=== PATIENT | female | born 1955 | race Caucasian/White ===

== ENCOUNTER 2016-11-28 14:13 | Inpatient (IN) | payer MEDICARE ==
[~2016-11-28] VITALS: Ht 170.2 cm; Wt 78.0 kg
[~2016-11-28 14:13] MED LIST: AMITIZA24 MCG PO; HYDROCODONE-APA1 TAB PO; KLONOPIN1 MG PO; LANTUS INSULIN10 ML SC; PHENERGAN25 M1 PO; PRILOSEC20 MG PO; PRINIVIL20 MG PO; SEROQUEL200 MG PO; VALIUM10 MG PO; ZANAFLEX4 MG PO
--- NOTE | 2016-11-28 14:40 | NUR ---
RECEIVED TO ROOM 2224 FROM [facility]. ORIENTED TO ROOM AND CALL LIGHT SYSTEM. FAMILY IN ROOM. CALL LIGHT IN REACH. WILL CONTINUE WITH PLAN OF CARE.
[2016-11-28 14:44] VITALS: BP 164/91
--- NOTE | 2016-11-28 14:59 | NUR ---
IV SITED TO LEFT FOREARM WITH 20 GA X1 STICK. NS INITIATED @ 75 CC/HR VIA PUMP. SCDs APPLIED TO BLE. HISTORY AND MED REC REVIEWED.
[2016-11-28] MEDS ORDERED: NORVASC10 MG PO (15:03)
[2016-11-28] MEDS ORDERED: ZESTRIL20 MG PO (15:04)
[2016-11-28] MEDS ORDERED: SEROQUEL300 MG PO (15:05)
[2016-11-28] MEDS ORDERED: CARAFATE1 G/10 ML PO (15:06)
[2016-11-28] MEDS ORDERED: OMEPRAZOLE20 M1 PO (15:06)
[2016-11-28] MEDS ORDERED: LANTUS INSULIN10 ML SC (15:08)
--- NOTE | 2016-11-28 15:46 | NUR ---
Patient Name: JOSE GONSALEZ Admission Status: Urgent Accout number: [id number] Admission Date: 11-28-2016 : 1955 Admission Diagnosis: Attending: MERCEDES Current LOS: 1 Anticipated DC Date: 12-02-2016 Planned Disposition: Home Primary Insurance: MEDICARE A & B Discharge Planning Comments: CM MET WITH PATIENT AND DAUGHTER IN LAW (CARROL) REGARDING D/C NEEDS AND PLANS. PATIENT STATED SHE LIVES ALONE AND CARROL WILL DRIVE HER HOME AT DISCHARGE. PATIENT STATED SHE HAS 4 STEPS W/RAILS TO ENTER HOME AND NO STAIRS INSIDE. PATIENT IS INDEPENDENT WITH HER CARE AND HAS A GLUCOMETER AT HOME. (DOES NOT CHECK SUGARS). PATIENTS PCP IS DR. CHRISTIANSON AND USES [facility]. PATIENT DOES NOT WANT HOME HEALTH. CM WILL CONTINUE TO FOLLOW PATIENT WITH D/C NEEDS AND PLANS. PCP DR. CHRISTIANSON [facility] - [phone] CARORL HERNANDEZ (DAUGHTER IN LAW) [phone] Soap Slabber: Jacqueline Gomez Is the patient Alert and Oriented? Yes 0 * How many steps to enter\exit or inside your home? 4 W/RAILS 0 * PCP DR. CHRISTIANSON 0 * Pharmacy [facility] 0 * Preadmission Environment Home with Family 0 * ADLs Independent 0 * Equipment Glucometer 0 * List name and contact numbers for known caregivers / representatives who currently or will assist patient after discharge: CARROL HERNANDEZ (DAUGHTER IN LAW) [phone] 0 * Community resources currently utilized None 0 * Additional services required to return to the preadmission environment? Yes 0 * Can the patient safely return to the preadmission environment? Yes 0 * Has this patient been hospitalized within the prior 30 days at any hospital? No 0 Grand Total: 0
[2016-11-28 16:25] LABS: BASOPHILS 0.3 % (0-2); HEMATOCRIT 42.7 % (36.0-48.0); HEMOGLOBIN 14.8 g/dL (12-16); IMMATURE GRANULOCYTES 0.1 % (0-5); LYMPHOCYTES 19.3 % (15-50); MCH 29.5 pg (26.0-34.0); MCHC 34.7 g/dL (31.0-37.0); MCV 85.2 fL (80.0-100.0); MEAN PLATELET VOLUME 10.7 fL (7.4-10.4); NEUTROPHILS 72.3 % (40-80); PLATELET COUNT 268 10x3/uL (130-400); RBC 5.01 10x6/uL (4.00-5.40); RDW 12.7 % (11.5-14.5); WBC 9.8 10x3/uL (4.8-10.8)
[2016-11-28 16:26] VITALS: BP 164/91; BMI 27.0
[2016-11-28 16:40] LABS: ALBUMIN 3.7 g/dL (3.4-5.0); BILIRUBIN - TOTAL 0.71 mg/dL (0.2-1.3); CALCIUM 8.4 mg/dL (8.5-10.1); CARBON DIOXIDE 23.2 mmol/L (21.0-32.0); POTASSIUM - SERUM 3.2 mmol/L (3.5-5.1); PROTEIN - SERUM 7.6 g/dL (6.4-8.2)
--- NOTE | 2016-11-28 16:47 | NUR ---
PROTONIX AND ATIVAN IVP. FSBS 290 SO 8 UNITS HUMALOG SUBQ TO RLQ.
--- NOTE | 2016-11-28 17:00 | NUR ---
14 FR NGT INSERTED TO LEFT TECHIQUE. PLACEMENT CHECKED. 50 CC LIGHT BLUE LIQUID OBTAINED.
--- NOTE | 2016-11-28 18:05 | NUR ---
STOOL COLLECTED AND SENT TO LAB FOR TESTING. NO OTHER CHANGES IN INITIAL ASSESSMENT. SCDs TO BLE. FAMILY IN ROOM. CALL LIGHT IN REACH. WILL CONTINUE WITH PLAN OF CARE.
[2016-11-28 20:00] VITALS: BP 156/99
--- NOTE | 2016-11-28 20:36 | NUR ---
URINE COLLECTED AND SENT TO LAB. RESULTS FROM STOOL SPECIMEN CALLED TO JONAH COOPER WITH ORDERS RECIEVED. PATIENT PLACED IN ISOLATION FOR POSITIVE STOOL SPECIMEN.
--- NOTE | 2016-11-28 21:41 | NUR ---
AWAKE,ALERT. NG TO LEFT NARE PATENT AND DRAINING. IV INFUSING TO LEFT FOREARM WITHOUT REDNESS OR EDEMA NOTED. CL IN REACH.
[2016-11-29] VITALS: BP 138/78
--- NOTE | 2016-11-29 00:28 | NUR ---
RESTING QUIETLY. NO DISTRESS NOTED.
--- NOTE | 2016-11-29 00:53 | NUR ---
PT ALERT & ORIENTED. C/O OF NAUSEA. NURSE GIVING NAUSEA MED NOW. NO OTHER NEEDS. CONTINUE ELECTRONIC SCALE ASSEMBLER AND TESTER'S PLAN OF CARE.
[2016-11-29 03:48] LABS: APPEARANCE CLOUDY (CLEAR); BILIRUBIN NEGATIVE (NEGATIVE); COLOR YELLOW (YELLOW); GLUCOSE 1000 mg/dL (NEGATIVE); KETONE NEGATIVE (NEGATIVE); LEUKOCYTE ESTERASE TRACE (NEGATIVE); NITRITE NEGATIVE (NEGATIVE); PROTEIN NEGATIVE (NEGATIVE); UROBILINOGEN NORMAL (NORMAL)
[2016-11-29 03:59] LABS: BACTERIA MANY /hpf (NONE SEEN); EPITHELIAL CELLS 0-5 /hpf (0-5); GRANULAR CAST RARE /lpf (NONE SEEN); HYALINE CAST RARE /lpf (NONE SEEN); RED CELLS - URINE RARE /hpf (0-5); WHITE CELLS - URINE 25-50 /hpf (0-5)
[2016-11-29 04:00] VITALS: BP 156/93
[2016-11-29 05:57] LABS: BASOPHILS 0.3 % (0-2); EOSINOPHILS 3.2 % (0-7); HEMATOCRIT 40.9 % (36.0-48.0); HEMOGLOBIN 13.9 g/dL (12-16); IMMATURE GRANULOCYTES 0.1 % (0-5); LYMPHOCYTES 33.8 % (15-50); MCH 29.1 pg (26.0-34.0); MCV 85.6 fL (80.0-100.0); MEAN PLATELET VOLUME 10.2 fL (7.4-10.4); MONOCYTES 7.8 % (2-11); NEUTROPHILS 54.8 % (40-80); PLATELET COUNT 272 10x3/uL (130-400); RBC 4.78 10x6/uL (4.00-5.40); RDW 12.7 % (11.5-14.5)
--- NOTE | 2016-11-29 06:16 | NUR ---
NO CHANGE IN ASSESSMENT. CL IN REACH.
[2016-11-29 06:18] LABS: WBC 7.2 10x3/uL (4.8-10.8)
--- NOTE | 2016-11-29 06:54 | NUR ---
REPORT RECEIVED FROM EQUIPMENT TECHNICIAN NURSE. CALL LIGHT IN REACH.
[2016-11-29 06:55] LABS: ALBUMIN 3.2 g/dL (3.4-5.0); ANION GAP 12.3 mmol/L (8-16); BILIRUBIN - TOTAL 0.5 mg/dL (0.2-1.3); CALCIUM 7.7 mg/dL (8.5-10.1); CARBON DIOXIDE 25.9 mmol/L (21.0-32.0); CREATININE - SERUM 0.9 mg/dL (0.6-1.3); POTASSIUM - SERUM 3.2 mmol/L (3.5-5.1); PROTEIN - SERUM 6.7 g/dL (6.4-8.2)
--- NOTE | 2016-11-29 07:52 | NUR ---
VERY ANXIOUS IN ROOM. STATES "I AM GOING TO . I AM NOT GOING TO MAKE IT." ASSURED PATIENT THAT SHE IS NOT GOING TO . SHE STARTED REQUESTING PAIN, NAUSEA, AND ANXIETY. OFFERED MORPHINE BUT STATES SHE WANTS DILAUDID INSTEAD TO "KNOCK HER OUT". OFFERED ZOFRAN AND ATIVAN BUT STATES PHENERGAN AND VALIUM INSTEAD. EXPLAINED TO PATIENT THAT IS ALL SHE HAS ORDERED NOW AND I WOULD SPEAK TO THE DOCTOR WHEN SHE GETS HERE. WILL GO AHEAD AND GIVEN MEDS NOW.
[2016-11-29 08:09] VITALS: BP 174/77
--- NOTE | 2016-11-29 08:27 | NUR ---
RESTING WITH EYES CLOSED. RESP EVEN AND UNLABORED. CALL LIGHT IN REACH.
--- NOTE | 2016-11-29 09:55 | NUR ---
PROTONIX IVP. RESTING WITH EYES CLOSED. RESP EVEN AND UNLABORED. CALL LIGHT IN REACH.
--- NOTE | 2016-11-29 10:55 | NUR ---
PATIENT SITTING UP ON SIDE OF BED ALERT. NO SIGNS OF DISTRESS NOTED. BED IN LOW POSITION. CALL LIGHT IN REACH.
[2016-11-29 12:38] VITALS: BP 180/94
--- NOTE | 2016-11-29 12:55 | NUR ---
NGT PULLED UP 10 CM.
--- NOTE | 2016-11-29 13:07 | NUR ---
4 UNITS SUBQ TO RIGHT ARM FOR BLOOD SUGAR OF 238.
[2016-11-29 13:16] VITALS: Ht 170.2 cm; Wt 78.0 kg
--- NOTE | 2016-11-29 15:20 | NUR ---
FLAGYL 500 MG IVP AND REGLAN 5 SIVP. CALL LIGHT IN REACH.
[2016-11-29 15:32] VITALS: BP 176/85
--- NOTE | 2016-11-29 17:39 | NUR ---
FSBS 202 SO 4 UNITS SUBQ. CALL LIGHT IN REACH.
--- NOTE | 2016-11-29 18:01 | NUR ---
FSBS 202 SO 4 UNITS SUBQ. CALL LIGHT IN REACH.
--- NOTE | 2016-11-29 18:09 | NUR ---
NO CHANGES IN INITITAL ASSESSMENT. CALL LIGHT IN REACH. SCDs ON. WILL CONTINUE WITH PLAN OF CARE.
[2016-11-30] VITALS: BP 154/82
[2016-11-30 04:00] VITALS: BP 127/74
[2016-11-30 07:05] LABS: BASOPHILS 0.2 % (0-2); EOSINOPHILS 0.8 % (0-7); HEMOGLOBIN 13.7 g/dL (12-16); IMMATURE GRANULOCYTES 0.2 % (0-5); LYMPHOCYTES 20.8 % (15-50); MCH 29.5 pg (26.0-34.0); MCHC 34.3 g/dL (31.0-37.0); MEAN PLATELET VOLUME 10.4 fL (7.4-10.4); MONOCYTES 10.4 % (2-11); NEUTROPHILS 67.6 % (40-80); PLATELET COUNT 292 10x3/uL (130-400); RBC 4.65 10x6/uL (4.00-5.40)
[2016-11-30 07:19] LABS: ALBUMIN 3.2 g/dL (3.4-5.0); ALKALINE PHOSPHATASE 125 U/L (46-116); ALT (SGPT) 63 U/L (10-68); CALC OSMOLALITY 289 mosm/kg (275-300); CARBON DIOXIDE 26.8 mmol/L (21.0-32.0); CHLORIDE - SERUM 105 mmol/L (98-107); CREATININE - SERUM 0.8 mg/dL (0.6-1.3); POTASSIUM - SERUM 3.1 mmol/L (3.5-5.1); PROTEIN - SERUM 6.8 g/dL (6.4-8.2); SODIUM 141 mmol/L (136-145); UREA NITROGEN 11 mg/dL (7-18); eGFR NON AFRICAN AMERICAN 77 mL/min (90-120)
[2016-11-30 07:20] LABS: GLUCOSE 274 mg/dL (74-106)
--- NOTE | 2016-11-30 07:45 | CN ---
PATIENT NAME:JOSE GONSALEZ MEDICAL RECORD: [id number] : 55 LOCATION:D.MS [id number] ADMIT DATE: 11/28/16 ACCOUNT: [id number] CONSULTING PHYSICIAN: SHIRA FOSTER MD REFERRING PHYSICIAN: ALKA HERNANDEZ MD DATE OF CONSULTATION: 11/29/2016 Surgical Consultation SURGEON: Shira Foster MD. CHIEF COMPLAINT: Nausea and vomiting. HISTORY OF PRESENT ILLNESS: This is a 61-year-old female who was admitted to the hospital yesterday. At her primary care physician's office, abdominal films revealed possible small bowel obstruction. She was sent to the hospital. Prior to her visit to PCP, she had had acute onset of diffuse abdominal pain associated with nausea, vomiting and diarrhea. The patient states the pain was diffuse across her abdomen. It was constant in nature, it was sharp and stabbing, it fluctuated in intensity, it was nonradiating. Currently, she is admitted to the hospital. CT scan was obtained, which shows some air-fluid levels in the colon, no evidence of small bowel obstruction. Currently, her pain is 6/10. Her main complaint is just persistence in the nausea. She has continued to have liquid diarrhea. Denies any episodes of hematemesis, hematochezia or melena. Denies any dysuria or hematuria. Denies having fever or chills at home. PAST MEDICAL HISTORY: Vertigo, diabetes, basal cell carcinoma of the face, acid reflux, gastric ulcers, depression. PAST SURGICAL HISTORY: Cholecystectomy, appendectomy, hysterectomy, cystoscopy laparotomy. ALLERGIES: No known drug allergies. MEDICATIONS: Please see electronic medical record for full list of medications. FAMILY HISTORY: Denies any history of cancer or diabetes in her parents. SOCIAL HISTORY: Denies tobacco abuse. Denies alcohol use. REVIEW OF SYSTEMS: A 12-point review of systems was obtained. Pertinent positives and negatives as per the HPI. PHYSICAL EXAMINATION: VITAL SIGNS: Temperature 97.9, pulse 74, respirations 18, blood pressure 180/94, satting 94% on room air. GENERAL: This is a well-developed, well-nourished female in moderate distress. PSYCHIATRIC: She is alert and oriented times 3. EYES: Extraocular muscles intact. EAR, NOSE AND THROAT: Mucous membranes are dry. NECK: Supple. CARDIOVASCULAR: Normal sinus rhythm. LUNGS: Clear to auscultation bilaterally. ABDOMEN: Firm, it is moderately distended, it is tympanitic. There is no CONSULT REPORT [id number] JOSE GONSALEZ guarding. No rebound, no peritoneal signs. No palpable hernia defects. SKIN: Warm and dry with normal turgor. EXTREMITIES: A 2+ pulses. No peripheral edema. NEUROLOGIC: She has a GCS of 15 with no focal deficits. LABORATORY DATA: Reviewed. Please see electronic medical record list for full lab results including CBC, chemistry, urinalysis and serology. The patient is negative for C. diff toxin, but positive for C. diff antigen. CT of the abdomen and pelvis images personally reviewed. No acute findings on CT of the abdomen and pelvis. IMPRESSION: This is a 61-year-old female with nausea, vomiting and diarrhea, positive Clostridium difficile, diarrhea and abdominal pain, possible gastroenteritis. PLAN: Continue IV fluid resuscitation, pull NG tube back 10 cm, continue NG tube to low intermittent wall suction, continue IV antibiotics for C. diff, serial abdominal exams, monitor labs and electrolytes for diarrhea. Follow up stool studies. TRANSINT:[id number] Voice Confirmation ID: [id number] DOCUMENT ID: [id number] SHIRA FOSTER MD at 0745 CC: [id number] DICTATION DATE: 11/29/16 1432 CEMENT MIXER: 11/30/16 0001 ADM IN [facility] [address] [place] [address]
--- NOTE | 2016-11-30 08:32 | NUR ---
SCHEDULED MEDICATIONS ADMINISTERED AT THIS TIME. NG TUBE CLAMPED PER ORDER. ASSESSMENT PERFORMED PER FLOWSHEET. PT DENIES NAUSEA OR VOMITING. CALL LIGHT IN REACH, PT IS SELF AMBULATORY. WILL CONTINUE WITH PLAN OF CARE.
[2016-11-30 09:01] VITALS: BP 171/104
--- NOTE | 2016-11-30 10:12 | NUR ---
SCHEDULED BLOOD PRESSURE MEDICATION ADMINISTERED AT THIS TIME. DENIES NAUSEA OR VOMITING. NG TUBE REMAINS CLAMPED AND PT TOLERATING WATER, JELLO AND POPSICLES. CALL LIGHT IN REACH, WILL CONTINUE WITH PLAN OF CARE.
--- NOTE | 2016-11-30 11:50 | NUR ---
BLOOD SUGAR 257. ADMINISTERED 6 UNITS TO LEFT ARM PER SLIDING SCALE. DENIES NAUSEA. NG TUBE REMAINS CLAMPED. CALL LIGHT IN REACH, WILL CONTINUE WITH PLAN OF CARE.
--- NOTE | 2016-11-30 12:55 | NUR ---
REPORTS THAT IV TO LEFT FOREARM IS TENDER AT THIS TIME. IV FLUIDS TURNED OFF AT THIS TIME. GABE MCKEON TO RE-SITE IV. CALL LIGHT IN REACH, WILL CONTINUE WITH PLAN OF CARE.
[2016-11-30 13:02] VITALS: BP 134/82
--- NOTE | 2016-11-30 13:50 | NUR ---
22G IV SITED TO PT'S LEFT AC X3 ATTEMPTS PER GABE MCKEON. PT TOLERATED WITHOUT COMPLAINTS, IV FLUIDS RE-STARTED. WILL CONTINUE WITH PLAN OF CARE.
--- NOTE | 2016-11-30 15:25 | NUR ---
NG TUBE REMAINS CLAMPED. PT WITHOUT NAUSEA OR EMESIS. SLEEPING AT THIS TIME WITH RESPIRATIONS EVEN AND NON LABORED. IV TO LEFT AC PATENT. CALL LIGHT IN REACH, WILL CONTINUE WITH PLAN OF CARE.
[2016-11-30 17:12] VITALS: BP 161/95
--- NOTE | 2016-11-30 17:15 | NUR ---
PT COMPLAINING OF NAUSEA WITHOUT EMESIS. PRN ZOFRAN ADMINISTERED PER ORDER. NG TUBE REMAINS CLAMPED AND EXPLAINED TO PT THAT TUBE COULD BE RE-CONNECTED TO SUCTION IF THE ZOFRAN DID NOT PROVIDE THE PT SOME RELIEF. PT VERBALIZED UNDERSTANDING. CALL LIGHT IN REACH, WILL CONTINUE WITH PLAN OF CARE.
--- NOTE | 2016-11-30 18:50 | NUR ---
PT STATES THAT NAUSEA IS BETTER SO NG TUBE CLAMPED AGAIN AT THIS TIME.
[2016-11-30 20:00] VITALS: BP 131/65
[2016-12-01] VITALS: BP 148/78
--- NOTE | 2016-12-01 03:16 | NUR ---
PT HAS BEEN ON HER CALL LIGHT FREQUENTLY DURING THE NIGHT. SHE IS GETTING UP TO THE BATHROOM TO VOID AND ONE TIME UNHOOKED HER NG TUBE CONNECTION AND HAD TO HAVE A COMPLETE LINEN CHANGE AND FLOOR CLEANING. SHE IS RESTING QUIET AT THIS TIME WITH EASY RESPIRTIONS AND NO DISTRESS. THE NG TUBE IS WORKING IT SHOULD. THE BED IS LOW, RAILS UP X'S 2 WITH THE CALL LIGHT AT HAND.
[2016-12-01 04:00] VITALS: BP 123/61
[2016-12-01 06:35] LABS: BASOPHILS 0.5 % (0-2); EOSINOPHILS 1.1 % (0-7); HEMATOCRIT 38.5 % (36.0-48.0); IMMATURE GRANULOCYTES 0.3 % (0-5); LYMPHOCYTES 33.5 % (15-50); MCH 29.3 pg (26.0-34.0); MCHC 33.8 g/dL (31.0-37.0); MCV 86.7 fL (80.0-100.0); MEAN PLATELET VOLUME 10.5 fL (7.4-10.4); MONOCYTES 6.9 % (2-11); NEUTROPHILS 57.7 % (40-80); PLATELET COUNT 254 10x3/uL (130-400); RBC 4.44 10x6/uL (4.00-5.40)
[2016-12-01 06:36] LABS: WBC 6.4 10x3/uL (4.8-10.8)
[2016-12-01 06:55] LABS: ALBUMIN 2.9 g/dL (3.4-5.0); ALKALINE PHOSPHATASE 111 U/L (46-116); CALC OSMOLALITY 287 mosm/kg (275-300); CALCIUM 7.9 mg/dL (8.5-10.1); CARBON DIOXIDE 25.3 mmol/L (21.0-32.0); CHLORIDE - SERUM 107 mmol/L (98-107); CREATININE - SERUM 0.7 mg/dL (0.6-1.3); GLUCOSE 216 mg/dL (74-106); POTASSIUM - SERUM 3.5 mmol/L (3.5-5.1); PROTEIN - SERUM 6.2 g/dL (6.4-8.2); SODIUM 142 mmol/L (136-145); UREA NITROGEN 7 mg/dL (7-18); eGFR NON AFRICAN AMERICAN 90 mL/min (90-120)
[2016-12-01 06:56] LABS: ALT (SGPT) 46 U/L (10-68)
--- NOTE | 2016-12-01 07:30 | NUR ---
ASSESSMENT PER FLOW SHEET.PT WITHOUT DISTRESS.ISOLATION MAINTAINED.CALL LIGHT IN REACH
[2016-12-01 07:50] VITALS: BP 146/85
--- NOTE | 2016-12-01 12:30 | NUR ---
TOLERATING REG DIET ORDERED.REMAINS WITHOUT NAUSEA AND VOMITING.
[2016-12-01 12:32] VITALS: BP 172/74
--- NOTE | 2016-12-01 14:28 | NUR ---
PT REFUSES LEVAQUIN IV.STATES SHE IS NOT ALLERGIC BUT DOESNT WANT IT.
[2016-12-01 15:48] VITALS: BP 155/81
--- NOTE | 2016-12-01 17:23 | NUR ---
PAIN MEDS ORDERED FOR HEADACHE.STATES SHE THINKS SHE HAS SINUS ISSUES.ICE PACK PER PT REQUEST.C/O SOME NAUSEA,BUT STATES SHE ATE TOO MUCH FOOD TO SOON.ZOFRAN ORDERED PER AUG.DENIES FURTHER NEEDS.CONT PLAN OF CARE
--- NOTE | 2016-12-01 19:20 | NUR ---
RECIEVED SHIFT REPORT. PT IS LYING IN BED. ALERT AND ORIENTED AND ABLE TO VERBALIZE NEEDS. IV IS PATENT AND SALINE LOC AT THIS TIME. PT IS AMBULATORY BUT WAS INSTRUCTED TO CALL FOR ANY ASSISTANCE NEEDED. SCD'S OFF AT THIS TIME. PT STATES PAIN IS 8/10. ISOLATION PRECAUTIONS ARE IN PLACE. NO NEEDS ARE VERBALIZED AT THIS TIME. WILL CONTINUE TO MONITOR. SIDE RAILS ARE UP X 2. BED IS IN LOWEST POSITION. CALL LIGHT IS WITHIN REACH.
[2016-12-01 20:00] VITALS: BP 111/78
--- NOTE | 2016-12-01 22:19 | NUR ---
SHIFT ASSESSMENT COMPLETED. NIGHT MEDS GIVEN WITH NO PROBLEMS. PT RECIEVED 8 UNITS INSULIN PER SLIDING SCALE FOR VJDO=[id number]. PT C/O PAIN 01/30. ADMINISTERED PRESCRIBED PRN NORCO PER ORDER. DENIES FURTHER NEEDS. WILL MONITOR. SIDE RAILS X 2. BED LOW. CALL LIGHT IN REACH.
[2016-12-02] VITALS: BP 110/80
[2016-12-02 04:00] VITALS: BP 126/66
[2016-12-02 06:25] LABS: HEMATOCRIT 34.8 % (36.0-48.0); HEMOGLOBIN 11.7 g/dL (12-16); MCH 29.2 pg (26.0-34.0); MCHC 33.6 g/dL (31.0-37.0); MCV 86.8 fL (80.0-100.0); MEAN PLATELET VOLUME 10.4 fL (7.4-10.4); PLATELET COUNT 251 10x3/uL (130-400); RBC 4.01 10x6/uL (4.00-5.40); WBC 5.8 10x3/uL (4.8-10.8)
[2016-12-02 06:47] LABS: ALBUMIN 2.5 g/dL (3.4-5.0); ALKALINE PHOSPHATASE 107 U/L (46-116); ALT (SGPT) 44 U/L (10-68); CALC OSMOLALITY 295 mosm/kg (275-300); CALCIUM 7.9 mg/dL (8.5-10.1); CARBON DIOXIDE 28.3 mmol/L (21.0-32.0); CHLORIDE - SERUM 111 mmol/L (98-107); CREATININE - SERUM 0.7 mg/dL (0.6-1.3); GLUCOSE 259 mg/dL (74-106); POTASSIUM - SERUM 3.1 mmol/L (3.5-5.1); PROTEIN - SERUM 5.3 g/dL (6.4-8.2); SODIUM 145 mmol/L (136-145); UREA NITROGEN 6 mg/dL (7-18); eGFR NON AFRICAN AMERICAN 90 mL/min (90-120)
[2016-12-02 07:11] LABS: BASOPHILS 1 % (0-2); LYMPHOCYTES 57 % (15-50); MONOCYTES 1 % (2-11); NEUTROPHILS 40 % (40-80); PLATELET ESTIMATE NORMAL
--- NOTE | 2016-12-02 08:00 | NUR ---
ASSESSMENT PER FLOW SHEET.PT WITHOUT DISTRESS.CALL LIGHT IN REACH.ISOLATION MAINTAINED.
[2016-12-02 08:33] VITALS: BP 122/71
--- NOTE | 2016-12-02 12:44 | NUR ---
NUTRITION MONITORING & EVAL CHART REVIEWED, PT VISIT. REMAINS IN ISOLATION. TOLERATING LUNCH. RD FOLLOWING
[2016-12-02] MEDS ORDERED: FLORAJEN3 CAPS460 MG PO (13:18)
[2016-12-02] MEDS ORDERED: PEPCID20 MG PO (13:18)
[2016-12-02] MEDS ORDERED: LEVAQUIN750 MG PO (13:22)
[2016-12-02] MEDS ORDERED: FLAGYL500 MG PO (13:22)
--- NOTE | 2016-12-02 15:12 | NUR ---
CM REASSESSEMENT NOTE: PATIENT IS DISCHARGING TODAY/IMM SIGNED/ DAUGHTER IN LAW WILL BE DRIVING HER HOME/ DENIED ANY NEEDS FOR DISCHARGE AND DENIED HOME HEALTH.
--- NOTE | 2016-12-02 15:26 | NUR ---
DISCHARGE INSTRUCTIONS,STATES UNDERSTANDING.IV DCD WITH CATH INTACT.PT STATES SHE WILL NOT TAKE LEVAQUIN PERIOD. CALL TO HERRERA
--- NOTE | 2016-12-02 15:28 | NUR ---
CALL BACK FROM [facility].NO OTHER ABX SENSITIVE TO ALL 3 BACTERIA.PT TO CONT WITH 3 DAYS OF LEVAQUIN
--- NOTE | 2016-12-02 15:34 | NUR ---
PT INFORMED ABOUT LEVAQUIN ABX.SHE STILL REFUSES TO GET MEDICATION FROM PHARMACY.SHE IS VERY UPSET BECAUSE SHE IS GOING HOME WITHOUT PAIN MEDICATIONS.SHE REFUSES TO RIDE IN WHEELCHAIR AND LEFT AMBULATORY FOR TRANSPORT HOME.
[2016-12-04 03:08] LABS: OVA + PARASITE EXAM Final report (())
== END 2016-12-02 15:37 | disposition home or self-care (01) | DRG 372 ==
LOC: D.MS 14:13
PROVIDERS: Family Medicine; Family Medicine Adult Medicine; ADMIT Family Medicine
PROC: 0D9670Z Drainage of Stomach with Drainage Device, Via Natural or Artificial Opening (ICD-10-PCS; principal; 2016-11-28)
DX: A04.7 Enterocolitis due to Clostridium difficile (principal); K56.60 Unspecified intestinal obstruction; I10 Essential (primary) hypertension; K21.9 Gastro-esophageal reflux disease without esophagitis; E11.65 Type 2 diabetes mellitus with hyperglycemia; Z79.4 Long term (current) use of insulin; F41.8 Other specified anxiety disorders

== ENCOUNTER → 2017-02-20 08:46 | Outpatient (CLI) | payer MEDICARE ==
[2016-11-29 13:16] VITALS: BMI 26.9
[~2017-02-20 08:46] MED LIST changes: +CARAFATE1 G/10 ML PO; +FLAGYL500 MG PO; +FLORAJEN3 CAPS460 MG PO; +LEVAQUIN750 MG PO; +NORVASC10 MG PO; +OMEPRAZOLE20 M1 PO; +PEPCID20 MG PO; +SEROQUEL300 MG PO; +ZESTRIL20 MG PO
[2017-02-20 10:03] LABS: ALBUMIN 3.7 g/dL (3.4-5.0); BILIRUBIN - DIRECT 0.1 mg/dL (0.00-0.30); BILIRUBIN - INDIRECT 0.31 mg/dL (0.00-1.00); BILIRUBIN - TOTAL 0.41 mg/dL (0.2-1.3); PROTEIN - SERUM 7.6 g/dL (6.4-8.2)
== END | disposition home or self-care (01) ==
LOC: D.US 08:46
PROVIDERS: Internal Medicine Gastroenterology
DX: K76.0 Fatty (change of) liver, not elsewhere classified (principal)

== ENCOUNTER → 2017-03-07 12:38 | Outpatient (CLI) | payer MEDICARE ==
[2016-11-29 13:16] VITALS: BMI 26.9
[2017-03-08 09:12] LABS: HEPATITIS C ANTIBODY <0.1 (0.0-0.9)
== END | disposition home or self-care (01) ==
LOC: D.LAB 02-28 08:15
PROVIDERS: Internal Medicine Gastroenterology
DX: R74.8 Abnormal levels of other serum enzymes (principal); R16.0 Hepatomegaly, not elsewhere classified

== ENCOUNTER → 2017-06-05 09:23 | Outpatient (CLI) | payer MEDICARE ==
[2016-11-29 13:16] VITALS: BMI 26.9
[2017-06-05 09:59] LABS: BASOPHILS 0.5 % (0-2); EOSINOPHILS 2.8 % (0-7); HEMATOCRIT 42.1 % (36.0-48.0); HEMOGLOBIN 14.3 g/dL (12-16); LYMPHOCYTES 49.4 % (15-50); MCH 29.4 pg (26.0-34.0); MCV 86.6 fL (80.0-100.0); MEAN PLATELET VOLUME 10.4 fL (7.4-10.4); MONOCYTES 5.8 % (2-11); NEUTROPHILS 41.5 % (40-80); PLATELET COUNT 294 10x3/uL (130-400); RBC 4.86 10x6/uL (4.00-5.40); RDW 12.6 % (11.5-14.5); WBC 5.7 10x3/uL (4.8-10.8)
[2017-06-05 10:16] LABS: % SATURATION 21 % (15-55); APTT 26.5 SECONDS (22.8-39.4); INR 0.96 (0.85-1.17); IRON 84 ug/dl (35-150); PROTIME 12.4 SECONDS (11.6-15.0); TOTAL IRON BIND CAPACITY 397 ug/dl (260-445); UNSAT IRON BIND CAPACITY 313 ug/dl (150-375)
[2017-06-05 10:29] LABS: ALBUMIN 3.6 g/dL (3.4-5.0); ALKALINE PHOSPHATASE 136 U/L (46-116); ALT (SGPT) 47 U/L (10-68); BILIRUBIN - DIRECT 0.08 mg/dL (0.00-0.30); BILIRUBIN - INDIRECT 0.29 mg/dL (0.00-1.00); BILIRUBIN - TOTAL 0.37 mg/dL (0.2-1.3); CALC OSMOLALITY 283 mosm/kg (275-300); CALCIUM 8.7 mg/dL (8.5-10.1); CARBON DIOXIDE 25.9 mmol/L (21.0-32.0); CHLORIDE - SERUM 101 mmol/L (98-107); CHOL - HDL RATIO 8.7 ratio (2.3-4.1); CHOLESTEROL, TOTAL 270 mg/dL (0-200); CREATININE - SERUM 1.1 mg/dL (0.6-1.3); FERRITIN 104 ng/mL (3-244); GAMMA GT 36 U/L (5-85); GLUCOSE 270 mg/dL (74-106); HDL CHOLESTEROL 31 mg/dL (32-96); PROTEIN - SERUM 7.3 g/dL (6.4-8.2); SODIUM 136 mmol/L (136-145); TRIGLYCERIDE 428 mg/dL (30-200); UREA NITROGEN 18 mg/dL (7-18); eGFR NON AFRICAN AMERICAN 53 mL/min (90-120)
[2017-06-06 09:16] LABS: FOLATE (FOLIC ACID) - SERUM 10.7 ng/mL (>3.0)
[2017-06-06 10:18] LABS: HAPTOGLOBIN 101 mg/dL (34-200)
[2017-06-06 11:17] LABS: ALPHA FETOPROTEIN -(TUMOR MRK) 6.3 ng/mL (0.0-8.3)
[2017-06-06 13:16] LABS: HEPATITIS C ANTIBODY <0.1 (0.0-0.9)
[2017-06-08 12:08] LABS: MITOCHONDRIAL ANTIBODY 4.4 Units (0.0-20.0); SMOOTH MUSCLE ABS (ACTIN) 11 Units (0-19)
== END | disposition home or self-care (01) ==
LOC: D.LAB 06-02 09:30
PROVIDERS: Internal Medicine Gastroenterology
DX: K76.0 Fatty (change of) liver, not elsewhere classified (principal); K59.00 Constipation, unspecified; K31.84 Gastroparesis; R10.9 Unspecified abdominal pain; R93.8 Abnormal findings on diagnostic imaging of other specified body structures

== ENCOUNTER → 2017-09-29 08:52 | Outpatient (CLI) | payer MEDICARE, MEDICAID ==
[2016-11-29 13:16] VITALS: BMI 26.9
[2017-09-29 09:42] LABS: ALBUMIN 3.3 g/dL (3.4-5.0); BILIRUBIN - DIRECT 0.06 mg/dL (0.00-0.30); BILIRUBIN - INDIRECT 0.18 mg/dL (0.00-1.00); BILIRUBIN - TOTAL 0.24 mg/dL (0.2-1.3); PROTEIN - SERUM 6.9 g/dL (6.4-8.2)
== END | disposition home or self-care (01) ==
LOC: D.LAB 08-22 09:30 → D.US 08-22 09:30 → D.LAB 08-22 10:00 → D.US 08:52
PROVIDERS: Internal Medicine Gastroenterology
DX: K76.0 Fatty (change of) liver, not elsewhere classified (principal)

== ENCOUNTER 2018-11-06 18:24 | Emergency (ER) | payer MEDICARE, MEDICAID ==
[~2018-11-06] VITALS: Ht 170.2 cm; Wt 77.3 kg
[2018-11-06 18:31] VITALS: Ht 170.2 cm; Wt 77.3 kg
[2018-11-06 18:56] LABS: BASOPHILS 0.2 % (0-2); HEMATOCRIT 41.2 % (36.0-48.0); HEMOGLOBIN 14.7 g/dL (12-16); IMMATURE GRANULOCYTES 0.2 % (0-5); LYMPHOCYTES 38.6 % (15-50); MCHC 35.7 g/dL (31.0-37.0); MCV 84.1 fL (80.0-100.0); MEAN PLATELET VOLUME 10.1 fL (7.4-10.4); MONOCYTES 5.9 % (2-11); NEUTROPHILS 54.1 % (40-80); PLATELET COUNT 330 10x3/uL (130-400); RDW 12.7 % (11.5-14.5); WBC 12.1 10x3/uL (4.8-10.8)
[2018-11-06 19:21] LABS: ALBUMIN 3.7 g/dL (3.4-5.0); ALKALINE PHOSPHATASE 127 U/L (46-116); ALT (SGPT) 59 U/L (10-68); BILIRUBIN - TOTAL 0.32 mg/dL (0.2-1.3); CALC OSMOLALITY 288 mosm/kg (275-300); CALCIUM 8.8 mg/dL (8.5-10.1); CARBON DIOXIDE 28.3 mmol/L (21.0-32.0); CHLORIDE - SERUM 99 mmol/L (98-107); CREATININE - SERUM 0.9 mg/dL (0.6-1.3); GLUCOSE 283 mg/dL (74-106); POTASSIUM - SERUM 3.8 mmol/L (3.5-5.1); PROTEIN - SERUM 7.5 g/dL (6.4-8.2); SODIUM 138 mmol/L (136-145); UREA NITROGEN 20 mg/dL (7-18); eGFR NON AFRICAN AMERICAN 67 mL/min (90-120)
[2018-11-06 19:23] LABS: AMYLASE - SERUM 32 U/L (25-115); LIPASE 134 U/L (73-393)
[2018-11-06 19:24] LABS: TROPONIN-I < 0.017 ng/mL (0.000-0.060)
[2018-11-06 21:06] LABS: APPEARANCE CLEAR (CLEAR); BILIRUBIN NEGATIVE (NEGATIVE); COLOR YELLOW (YELLOW); GLUCOSE 1000 mg/dL (NEGATIVE); KETONE NEGATIVE (NEGATIVE); NITRITE NEGATIVE (NEGATIVE); PROTEIN NEGATIVE (NEGATIVE); UROBILINOGEN NORMAL (NORMAL)
[2018-11-06] MEDS ORDERED: PHENERGAN25 MG RC (21:09)
[2018-11-06 22:56] VITALS: BP 168/78
== END 2018-11-06 22:56 | disposition home or self-care (01) ==
LOC: D.ER 18:24
PROVIDERS: Emergency Medicine
DX: R11.10 Vomiting, unspecified (principal)

== ENCOUNTER 2019-01-24 16:15 | Emergency (ER) | payer MEDICARE, MEDICAID ==
[~2019-01-24] VITALS: Ht 170.2 cm; Wt 79.5 kg
[~2019-01-24 16:15] MED LIST changes: +PHENERGAN25 MG RC
[2019-01-24 16:18] VITALS: Ht 170.2 cm; Wt 79.5 kg
[2019-01-24 16:40] LABS: BASOPHILS 0.4 % (0-2); EOSINOPHILS 1.3 % (0-7); HEMATOCRIT 40.2 % (36.0-48.0); HEMOGLOBIN 14.1 g/dL (12-16); IMMATURE GRANULOCYTES 0.1 % (0-5); LYMPHOCYTES 46.9 % (15-50); MCH 29.9 pg (26.0-34.0); MCHC 35.1 g/dL (31.0-37.0); MCV 85.2 fL (80.0-100.0); MEAN PLATELET VOLUME 10.2 fL (7.4-10.4); MONOCYTES 5.3 % (2-11); PLATELET COUNT 319 10x3/uL (130-400); RBC 4.72 10x6/uL (4.00-5.40); RDW 12.6 % (11.5-14.5); WBC 7.2 10x3/uL (4.8-10.8)
[2019-01-24 16:57] LABS: ALKALINE PHOSPHATASE 109 U/L (46-116); ALT (SGPT) 29 U/L (10-68); BILIRUBIN - TOTAL 0.57 mg/dL (0.2-1.3); CALCIUM 9.6 mg/dL (8.5-10.1); CHLORIDE - SERUM 104 mmol/L (98-107); CREATININE - SERUM 0.9 mg/dL (0.6-1.3); POTASSIUM - SERUM 3.6 mmol/L (3.5-5.1); PROTEIN - SERUM 7.9 g/dL (6.4-8.2); SODIUM 143 mmol/L (136-145); UREA NITROGEN 14 mg/dL (7-18); eGFR NON AFRICAN AMERICAN 67 mL/min (90-120)
[2019-01-24 17:01] LABS: AMYLASE - SERUM 30 U/L (25-115); LIPASE 105 U/L (73-393)
[2019-01-24 17:03] LABS: CALC OSMOLALITY 287 mosm/kg (275-300); GLUCOSE 143 mg/dL (74-106); TROPONIN-I < 0.017 ng/mL (0.000-0.060)
[2019-01-24 18:09] LABS: APPEARANCE CLEAR (CLEAR); COLOR YELLOW (YELLOW)
[2019-01-24 18:10] LABS: BILIRUBIN NEGATIVE (NEGATIVE); GLUCOSE NEGATIVE (NEGATIVE); KETONE SMALL mg/dL (NEGATIVE); NITRITE NEGATIVE (NEGATIVE); PROTEIN NEGATIVE (NEGATIVE); SPECIFIC GRAVITY 1.015 (1.005-1.020); UROBILINOGEN NORMAL (NORMAL)
[2019-01-24] MEDS ORDERED: REGLAN10 MG PO (21:36)
[2019-01-24 22:10] VITALS: BP 156/74
== END 2019-01-24 22:10 | disposition home or self-care (01) ==
LOC: D.ER 16:15
PROVIDERS: Emergency Medicine
DX: K76.0 Fatty (change of) liver, not elsewhere classified (principal); R10.9 Unspecified abdominal pain; R11.2 Nausea with vomiting, unspecified; R19.7 Diarrhea, unspecified

== ENCOUNTER → 2019-04-05 08:08 | Outpatient (CLI) | payer MEDICARE, MEDICAID ==
[2019-01-24 16:18] VITALS: BMI 27.4
[~2019-04-05 08:08] MED LIST changes: +REGLAN10 MG PO
== END | disposition home or self-care (01) ==
LOC: D.RAD 03-02 09:00 → D.US 03-08 14:30 → D.RAD 03-11 09:00
PROVIDERS: ATTEND Internal Medicine Gastroenterology
DX: R13.10 Dysphagia, unspecified (principal); R11.2 Nausea with vomiting, unspecified; E04.1 Nontoxic single thyroid nodule

== ENCOUNTER → 2020-04-04 11:29 | Outpatient (CLI) | payer MEDICARE, MEDICAID ==
[2019-01-24 16:18] VITALS: BMI 27.4
[2020-04-04 12:35] LABS: ALBUMIN 3.7 g/dL (3.4-5.0); BILIRUBIN - DIRECT 0.15 mg/dL (0.00-0.30); BILIRUBIN - INDIRECT 0.46 mg/dL (0.00-1.00); BILIRUBIN - TOTAL 0.61 mg/dL (0.2-1.3)
== END | disposition home or self-care (01) ==
LOC: D.LAB 02-17 10:00 → D.US 02-17 11:30 → D.LAB 03-02 13:30
PROVIDERS: ATTEND Internal Medicine Gastroenterology
DX: K76.0 Fatty (change of) liver, not elsewhere classified (principal)